=== PATIENT | male | born 1980 | race Caucasian/White ===

== ENCOUNTER 2023-12-24 20:44 | Inpatient (IN) | payer BC ==
[2023-12-24] MEDS ORDERED: Morphine 2 MG/ML SYRINGE IVPUSH PRN ×2 (21:02)
[2023-12-24] MEDS ORDERED: fentaNYL 50 MCG/ML SDV IVPUSH PRN ×3 (21:02)
[2023-12-24] MEDS ORDERED: diphenhydrAMINE 50 MG/ML SDV IVPUSH PRN (21:02)
[2023-12-24] MEDS ORDERED: Scopalamine 1mg/3day Transdermal Patch TRDERM PRN (21:02)
[2023-12-24] MEDS ORDERED: Morphine 10 MG/ML Syringe IVPUSH PRN (21:02)
[2023-12-24] MEDS ORDERED: 50% Dextrose in Water 50 ML Syringe IVPUSH PRN (21:02)
[2023-12-24] MEDS ORDERED: Promethazine 12.5 MG in Sodium Chloride 0.9% 50 ML IV PRN (21:02)
[2023-12-24] MEDS ORDERED: Glucagon,Human Recombinant 1 MG Vial IM PRN (21:02)
[2023-12-24] MEDS ORDERED: Naloxone 0.4 MG/ML SDV IVPUSH PRN (21:02)
[2023-12-24] MEDS: hydrOXYzine HCL 100 MG/2 ML SDV IM ONE (21:38)
[2023-12-24] MEDS: Acetaminophen 1,000 MG in Premix Bag 1 BAG IV ONE (21:39)
[2023-12-24 21:50] LABS: BASOPHILS ABSOLUTE AUTO 0.03 K/uL (0.00-0.10); BASOPHILS PERCENT AUTO 0.2 % (0.1-1.3); HEMATOCRIT 42.3 % (38.4-49.7); HEMOGLOBIN 14.6 g/dL (12.9-16.9); IMMATURE GRAN ABSOLUTE AUTO 0.12 K/uL (0.00-0.23); IMMATURE GRAN PERCENT AUTO 0.7 % (0.0-0.7); LYMPHOCYTES ABSOLUTE AUTO 0.16 K/uL (0.8-3.3); MEAN CORPUSCULAR HEMOGLOBIN 28.6 pg (31.6-35.5); MEAN CORPUSCULAR HGB CONC 34.5 g/dL (31.6-35.5); MEAN CORPUSCULAR VOLUME 82.8 fL (81.4-99.0); MONOCYTES ABSOLUTE AUTO 1.08 K/uL (0.20-0.90); MONOCYTES PERCENT AUTO 6.7 % (3.3-12.6); NEUTROPHILS ABSOLUTE AUTO 14.63 K/uL (1.0-7.6); NEUTROPHILS PERCENT AUTO 91.4 % (40.0-78.1); PLATELET COUNT,PLT 389 K/uL (130-375); RED BLOOD CELL COUNT 5.11 M/uL (4.14-5.76)
[2023-12-24] MEDS: Piperacillin/Tazobactam 4.5 GM in Sodium Chloride 0.9% 100 ML IV ONE (22:07)
[2023-12-24 22:16] LABS: LACTIC ACID 2.5 mmol/L (0.4-2.0)
[2023-12-24 22:22] LABS: TROPONIN I HIGH SENSITIVITY < 4.0 pg/mL (<=60.3)
[2023-12-24] MEDS ORDERED: hydrOXYzine HCL 100 MG/2 ML SDV IM PRN (22:33)
[2023-12-24] MEDS: Sodium Chloride 0.9% 1,000 ML IV ONE (22:39)
[2023-12-24] MEDS: Sodium Chloride 0.9% 1,000 ML IV SCH (22:39)
[2023-12-24] MEDS: Insulin Lispro 100 Unit/ML 3 ML KwikPen SUBCUT SCH (23:12)
[2023-12-24 23:32] LABS: AMPHETAMINES SCREEN, URINE NEGATIVE (NEGATIVE); BARBITURATE SCREEN,URINE NEGATIVE (NEGATIVE); BENZODIAZEPINES SCREEN,URINE NEGATIVE (NEGATIVE); METHADONE SCREEN, URINE NEGATIVE (NEGATIVE); METHAMPHETAMINES SCREEN, URINE NEGATIVE (NEGATIVE); OXYCODONE SCREEN,URINE NEGATIVE (NEGATIVE); PROPOXYPHENE SCREEN,URINE NEGATIVE (NEGATIVE); THC SCREEN,URINE 50 NG/ML NEGATIVE (NEGATIVE)
[2023-12-24] MEDS: HYDROmorphone 1 MG/ML Syringe IVPUSH PRN (23:54)
[2023-12-24 23:59] LABS: A/G RATIO 0.9 (1.2-2.2); ALANINE AMINOTRANSFERASE,ALT 264 U/L (12-78); ALBUMIN 3.9 g/dL (3.4-5.0); ALKALINE PHOSPHATASE 411 U/L (46-116); ASPARTATE AMNIOTRANSFERASE,AST 461 U/L (15-37); BILIRUBIN TOTAL 4.1 mg/dL (0.2-1.0); BLOOD UREA NITROGEN,BUN 33 mg/dL (7-18); CALCIUM 9.1 mg/dL (8.5-10.1); CHLORIDE,CL 94 mmol/L (100-108); CREATININE 1.4 mg/dL (0.8-1.3); EST CRCL DRUG DOSING (CG) 70.97 mL/min; ESTIMATED GFR 63 mL/min (>60); GLUCOSE RANDOM 301 mg/dL (74-106); POTASSIUM,K 4.4 mmol/L (3.6-5.2); PROTEIN TOTAL,TP 8.2 g/dL (6.4-8.2); SODIUM,NA 133 mmol/L (140-148)
[2023-12-25] LABS: ANION GAP 30.4 mmol/L (5.0-14.0); CARBON DIOXIDE,CO2 13 mmol/L (21-32)
[2023-12-25] MEDS: Piperacillin/Tazobactam 4.5 GM in Sodium Chloride 0.9% 100 ML IV SCH (01:36)
[2023-12-25] MEDS: Ondansetron 4 MG/2 ML SDV IVPUSH PRN (03:40)
[2023-12-25] MEDS: Acetaminophen 1,000 MG in Premix Bag 1 BAG IV ONE (04:19)
[2023-12-25 05:35] LABS: BASOPHILS PERCENT AUTO 0.1 % (0.1-1.3); HEMATOCRIT 38.2 % (38.4-49.7); HEMOGLOBIN 13.3 g/dL (12.9-16.9); IMMATURE GRAN ABSOLUTE AUTO 0.07 K/uL (0.00-0.23); IMMATURE GRAN PERCENT AUTO 0.5 % (0.0-0.7); LYMPHOCYTES ABSOLUTE AUTO 0.16 K/uL (0.8-3.3); LYMPHOCYTES PERCENT AUTO 1.1 % (11.4-47.7); MEAN CORPUSCULAR HEMOGLOBIN 28.9 pg (31.6-35.5); MEAN CORPUSCULAR HGB CONC 34.8 g/dL (31.6-35.5); MEAN CORPUSCULAR VOLUME 82.9 fL (81.4-99.0); MONOCYTES ABSOLUTE AUTO 1.07 K/uL (0.20-0.90); MONOCYTES PERCENT AUTO 7.3 % (3.3-12.6); NEUTROPHILS ABSOLUTE AUTO 13.24 K/uL (1.0-7.6); PLATELET COUNT,PLT 323 K/uL (130-375); RED BLOOD CELL COUNT 4.61 M/uL (4.14-5.76); WHITE BLOOD CELL COUNT,WBC 14.6 K/uL (3.2-11.0)
[2023-12-25 05:38] LABS: BASOPHILS ABSOLUTE AUTO 0.02 K/uL (0.00-0.10)
[2023-12-25 05:54] LABS: CALCIUM 8.6 mg/dL (8.5-10.1); CREATININE 1.5 mg/dL (0.8-1.3); EST CRCL DRUG DOSING (CG) 66.24 mL/min; POTASSIUM,K 4.6 mmol/L (3.6-5.2)
[2023-12-25 06:09] LABS: ANION GAP 28.6 mmol/L (5.0-14.0)
[2023-12-25] MEDS ORDERED: Rocuronium 50 MG/5 ML Vial ONE (07:39)
[2023-12-25] MEDS ORDERED: Neostigmine Methylsulfate 10 MG/10 ML MDV ONE (07:39)
[2023-12-25] MEDS ORDERED: Dexamethasone 4 MG/ML SDV ONE (07:39)
[2023-12-25] MEDS ORDERED: Ondansetron 4 MG/2 ML SDV ONE (07:39)
[2023-12-25] MEDS ORDERED: Glycopyrrolate 0.2 MG/ML 5 ML MDV ONE (07:39)
[2023-12-25] MEDS ORDERED: Propofol 200 MG/20 ML SDV ONE (07:39)
[2023-12-25] MEDS ORDERED: fentaNYL 250 MCG/5 ML SDV ONE ×2 (07:39→09:38)
[2023-12-25] MEDS ORDERED: Succinylcholine 200 MG/10 ML MDV ONE (07:39)
[2023-12-25 08:26] LABS: A/G RATIO 0.8 (1.2-2.2); ALBUMIN 3.3 g/dL (3.4-5.0); BILIRUBIN DIRECT 4.57 mg/dL (0.0-0.2); BILIRUBIN INDIRECT 0.53; BILIRUBIN TOTAL 5.1 mg/dL (0.2-1.0); PROTEIN TOTAL,TP 7.3 g/dL (6.4-8.2)
[2023-12-25] MEDS ORDERED: Nicotine 7 MG/24 Hr Patch TRDERM SCH (09:00)
[2023-12-25] MEDS: Piperacillin/Tazobactam/Dext 4.5 GM in Premix Bag 1 BAG IV SCH (09:30)
[2023-12-25] MEDS ORDERED: Ketorolac 30 MG/ML SDV ONE (10:04)
[2023-12-25] MEDS: Lidocaine 1% with EPINEPHrine 1:100,000 50 ML MDV ONE (10:10)
[2023-12-25] MEDS: Bupivacaine 0.5% 50 ML MDV ONE (10:10)
[2023-12-25] MEDS ORDERED: Indocyanine Green 25 MG SDV ONE (10:22)
[2023-12-25] MEDS ORDERED: Sugammadex Sodium 200 MG/2 ML VIAL IV ONE (11:32)
[2023-12-25] MEDS ORDERED: HYDROmorphone 1 MG/ML Syringe IVPUSH PRN (12:52)
[2023-12-25] MEDS ORDERED: HYDROmorphone 0.5 MG/0.5 ML Syringe IVPUSH PRN (12:55)
[2023-12-25] MEDS: oxyCODONE 5 MG Tab PO PRN (12:58)
[2023-12-25] MEDS: MVI, Adult with Vitamin K 10 ML in Sodium Chloride 0.9% 1,000 ML IV ONE (13:24)
[2023-12-25] MEDS ORDERED: Sodium Chloride 0.9% 1,000 ML IV SCH (15:30)
[2023-12-25] MEDS: Ibuprofen 600 MG Tab PO PRN (15:47)
[2023-12-25] MEDS ORDERED: Albuterol 0.083% 2.5 MG/3 ML Neb Soln NEB PRN (18:27)
[2023-12-25] MEDS ORDERED: Non-Formulary Medication 1 Each (Budesonide/Formoterol Fumarate [Symbicort 80-4.5 Mcg Inha INH SCH (18:30)
[2023-12-25] MEDS: Albuterol/Ipratropium 3.0-0.5 MG/3 ML Neb Soln NEB SCH (20:51)
[2023-12-25] MEDS: Lisinopril 10 MG Tab PO SCH (20:52)
[2023-12-25] MEDS: Rosuvastatin 10 MG Tab PO SCH (20:52)
[2023-12-25] MEDS: Acetaminophen 325 MG Tab PO PRN (21:47)
[2023-12-26 05:02] LABS: HEMATOCRIT 33.7 % (38.4-49.7); HEMOGLOBIN 11.7 g/dL (12.9-16.9); MEAN CORPUSCULAR HEMOGLOBIN 28.5 pg (31.6-35.5); MEAN CORPUSCULAR HGB CONC 34.7 g/dL (31.6-35.5); RED BLOOD CELL COUNT 4.11 M/uL (4.14-5.76); WHITE BLOOD CELL COUNT,WBC 9.4 K/uL (3.2-11.0)
[2023-12-26 05:29] LABS: A/G RATIO 0.7 (1.2-2.2); ALANINE AMINOTRANSFERASE,ALT 472 U/L (12-78); ALBUMIN 2.8 g/dL (3.4-5.0); ALKALINE PHOSPHATASE 370 U/L (46-116); ASPARTATE AMNIOTRANSFERASE,AST 503 U/L (15-37); BILIRUBIN TOTAL 5.8 mg/dL (0.2-1.0); BLOOD UREA NITROGEN,BUN 27 mg/dL (7-18); CALCIUM 8.7 mg/dL (8.5-10.1); CARBON DIOXIDE,CO2 18 mmol/L (21-32); CHLORIDE,CL 95 mmol/L (100-108); CREATININE 1.3 mg/dL (0.8-1.3); ESTIMATED GFR 69 mL/min (>60); GLUCOSE RANDOM 196 mg/dL (74-106); POTASSIUM,K 4.2 mmol/L (3.6-5.2); PROTEIN TOTAL,TP 6.7 g/dL (6.4-8.2); SODIUM,NA 130 mmol/L (140-148)
[2023-12-26 05:33] LABS: ANION GAP 21.2 mmol/L (5.0-14.0)
[2023-12-26] MEDS ORDERED: Glucagon,Human Recombinant 1 MG Vial IM PRN ×2 (08:29→15:15)
[2023-12-26] MEDS ORDERED: 50% Dextrose in Water 50 ML Syringe IVPUSH PRN ×2 (08:29→15:15)
[2023-12-26] MEDS: Hydrochlorothiazide 25 MG Tab PO SCH (08:42)
[2023-12-26] MEDS: Insulin Lispro 100 Unit/ML 3 ML KwikPen SUBCUT ONE ×2 (08:44→15:26)
[2023-12-26] MEDS: Mometasone Furoate Powder 220 MCG/Puff 14 Dose Inhaler INH SCH (09:07)
[2023-12-26] MEDS: Empagliflozin 10 MG Tab PO SCH (11:11)
[2023-12-26] MEDS: Insulin Lispro 100 Unit/ML 3 ML KwikPen SUBCUT SCH (12:12)
[2023-12-26] MEDS: Glimepiride 2 MG Tab PO SCH (17:04)
[2023-12-27 04:37] LABS: A/G RATIO 0.7 (1.2-2.2); ALANINE AMINOTRANSFERASE,ALT 711 U/L (12-78); ALBUMIN 2.7 g/dL (3.4-5.0); ALKALINE PHOSPHATASE 716 U/L (46-116); ASPARTATE AMNIOTRANSFERASE,AST 687 U/L (15-37); BILIRUBIN TOTAL 6.3 mg/dL (0.2-1.0); BLOOD UREA NITROGEN,BUN 24 mg/dL (7-18); CALCIUM 9.1 mg/dL (8.5-10.1); CARBON DIOXIDE,CO2 26 mmol/L (21-32); CHLORIDE,CL 93 mmol/L (100-108); ESTIMATED GFR 95 mL/min (>60); GLUCOSE RANDOM 176 mg/dL (74-106); POTASSIUM,K 3.8 mmol/L (3.6-5.2); PROTEIN TOTAL,TP 6.6 g/dL (6.4-8.2); SODIUM,NA 128 mmol/L (140-148)
[2023-12-27 05:16] LABS: ANION GAP 12.8 mmol/L (5.0-14.0)
[2023-12-27] MEDS: Sennosides/Docusate Sodium 50-8.6 MG Tab PO SCH (12:11)
[2023-12-27] MEDS: tiZANidine 2 MG Tab PO PRN (20:44)
[2023-12-27] MEDS: Melatonin 3 MG Tab PO PRN (21:12)
[2023-12-28 05:08] LABS: HEMATOCRIT 37.2 % (38.4-49.7); HEMOGLOBIN 13.1 g/dL (12.9-16.9); MEAN CORPUSCULAR HEMOGLOBIN 28.4 pg (31.6-35.5); MEAN CORPUSCULAR HGB CONC 35.2 g/dL (31.6-35.5); MEAN CORPUSCULAR VOLUME 80.5 fL (81.4-99.0); RED BLOOD CELL COUNT 4.62 M/uL (4.14-5.76); WHITE BLOOD CELL COUNT,WBC 5.5 K/uL (3.2-11.0)
[2023-12-28 05:29] LABS: A/G RATIO 0.5 (1.2-2.2); ALANINE AMINOTRANSFERASE,ALT 615 U/L (12-78); ALBUMIN 2.4 g/dL (3.4-5.0); ALKALINE PHOSPHATASE 991 U/L (46-116); BILIRUBIN TOTAL 7.2 mg/dL (0.2-1.0); BLOOD UREA NITROGEN,BUN 26 mg/dL (7-18); CALCIUM 9.2 mg/dL (8.5-10.1); CARBON DIOXIDE,CO2 25 mmol/L (21-32); CHLORIDE,CL 88 mmol/L (100-108); ESTIMATED GFR 107 mL/min (>60); GLUCOSE RANDOM 126 mg/dL (74-106); POTASSIUM,K 4.3 mmol/L (3.6-5.2); SODIUM,NA 125 mmol/L (140-148)
[2023-12-28 05:35] LABS: ANION GAP 16.3 mmol/L (5.0-14.0)
[2023-12-28 05:36] LABS: ASPARTATE AMNIOTRANSFERASE,AST 329 U/L (15-37); CREATININE 0.9 mg/dL (0.8-1.3)
[2023-12-28 13:04] LABS: INR 1.1; PROTHROMBIN TIME 10.9 sec (9.2-10.6)
[2023-12-29 05:36] LABS: HEMATOCRIT 37.1 % (38.4-49.7); HEMOGLOBIN 13.4 g/dL (12.9-16.9); MEAN CORPUSCULAR HEMOGLOBIN 28.5 pg (31.6-35.5); MEAN CORPUSCULAR HGB CONC 36.1 g/dL (31.6-35.5); MEAN CORPUSCULAR VOLUME 78.9 fL (81.4-99.0); RED BLOOD CELL COUNT 4.7 M/uL (4.14-5.76); WHITE BLOOD CELL COUNT,WBC 7.9 K/uL (3.2-11.0)
[2023-12-29 05:56] LABS: A/G RATIO 0.5 (1.2-2.2); ALBUMIN 2.1 g/dL (3.4-5.0); BILIRUBIN DIRECT 3.53 mg/dL (0.0-0.2); BILIRUBIN INDIRECT 0.57; BILIRUBIN TOTAL 4.1 mg/dL (0.2-1.0); CALCIUM 8.6 mg/dL (8.5-10.1); EST CRCL DRUG DOSING (CG) 99.35 mL/min; MAGNESIUM 1.9 mg/dL (1.8-2.4); PROTEIN TOTAL,TP 6.4 g/dL (6.4-8.2)
[2023-12-29 06:02] LABS: ANION GAP 15.8 mmol/L (5.0-14.0); POTASSIUM,K 2.8 mmol/L (3.6-5.2)
[2023-12-29] MEDS: Potassium Chloride 20 MEQ Tab.ER PO ONE ×4 (08:21→21:14)
[2023-12-29] MEDS: Potassium Chloride 10 MEQ in Premix Bag 1 BAG IV SCH (09:24)
[2023-12-30 05:27] LABS: A/G RATIO 0.5 (1.2-2.2); ALBUMIN 2.2 g/dL (3.4-5.0); BILIRUBIN DIRECT 2.53 mg/dL (0.0-0.2); BILIRUBIN INDIRECT 0.57; BILIRUBIN TOTAL 3.1 mg/dL (0.2-1.0); CALCIUM 8.6 mg/dL (8.5-10.1); EST CRCL DRUG DOSING (CG) 99.35 mL/min; POTASSIUM,K 3.8 mmol/L (3.6-5.2)
[2023-12-30 06:26] LABS: ANION GAP 16.8 mmol/L (5.0-14.0)
== END 2023-12-30 12:27 | disposition home or self-care (01) | DRG 710 ==
LOC: JP.MS 20:44 → OBSVTOIN 12-26 11:57
PROVIDERS: ADMIT Surgery; ATTEND Surgery
PROC: BF522Z0 Other Imaging of Gallbladder using Fluorescing Agent, Intraoperative (ICD-10-PCS; 2023-12-25)
PROC: 8E0W4CZ Robotic Assisted Procedure of Trunk Region, Percutaneous Endoscopic Approach (ICD-10-PCS; 2023-12-25)
PROC: 0FT44ZZ Resection of Gallbladder, Percutaneous Endoscopic Approach (ICD-10-PCS; principal; 2023-12-25 09:58)
PROC: 0W9G4ZZ Drainage of Peritoneal Cavity, Percutaneous Endoscopic Approach (ICD-10-PCS; 2023-12-26)
PROC: 3E03329 Introduction of Other Anti-infective into Peripheral Vein, Percutaneous Approach (ICD-10-PCS; 2023-12-26)
DX: A41.59 Other Gram-negative sepsis (principal); N17.9 Acute kidney failure, unspecified; E87.21 Acute metabolic acidosis; K80.00 Calculus of gallbladder with acute cholecystitis without obstruction; K82.A1 Gangrene of gallbladder in cholecystitis; R65.20 Severe sepsis without septic shock; K76.9 Liver disease, unspecified; J45.909 Unspecified asthma, uncomplicated; E11.9 Type 2 diabetes mellitus without complications; I10 Essential (primary) hypertension; E78.5 Hyperlipidemia, unspecified; Z98.890 Other specified postprocedural states; Z79.4 Long term (current) use of insulin; Z88.5 Allergy status to narcotic agent; Z88.6 Allergy status to analgesic agent; Z98.84 Bariatric surgery status; Z79.899 Other long term (current) drug therapy
CPT/HCPCS: 00790-QZ; 36415; 73610-RT; 74181; 80048; 80053; 80076; 80305-QW; 82248; 82947; 83605; 83690; 83735; 84132; 84484; 85025; 85027; 85610; 86140; 87040; 87070; 87075; 87077; 87186; 87205; 88304; 93010; 94640; 96361; 96365; 96366; 96375; 96376; 99232; 99238; A9270-GY; G0378; J0131; J0171; J0330; J0665; J1100; J1170; J1596; J1815; J1885; J2405; J2543; J2704; J2710; J2795; J3010; J3410; J3480; J3490; J7030; J7620